=== PATIENT | female | born 1950 | race Caucasian/White ===

== ENCOUNTER 2016-11-07 08:02 | Observation (INO) | payer BC, MEDICARE ==
[~2016-11-07 08:02] MED LIST: CITA20TA4 PO; FLUO40CA PO; LISI-515 PO; LORA-392 PO; METF500T PO
[2016-11-07 10:15] VITALS: BP 131/72; PULSE 66; RESP 17; TEMP 98.8; O2SAT 95
[2016-11-07] MEDS ORDERED: MAGNESIUM HYDROXIDE SUSP 30 ML CUP PO PRN (10:45)
[2016-11-07] MEDS ORDERED: BISACODYL 10 MG SUPP RECTAL PRN (10:45)
[2016-11-07] MEDS ORDERED: SENNOSIDES 8.6 MG TAB PO PRN (10:45)
[2016-11-07] MEDS ORDERED: NALOXONE HCL 0.4 MG/ML AMP IV PRN ×2 (10:45→14:30)
[2016-11-07] MEDS ORDERED: SODIUM CHLORIDE 0.9% FLUSH 10 ML FLUSH IV FLUSH PRN (10:45)
[2016-11-07] MEDS ORDERED: LACTULOSE SYRUP 20 GM/30 ML CUP PO PRN (10:45)
[2016-11-07] MEDS ORDERED: SUCRALFATE 1 GM/10 ML CUP PO ONE (11:30)
[2016-11-07] MEDS ORDERED: ENALAPRILAT 1.25 MG/ML VIAL IV PUSH PRN (11:45)
--- NOTE | 2016-11-07 11:48 | HHI.HP ---
HPI Service [facility] Primary Care Physician Jamia Altman MD Admission Diagnosis Diagnoses: Travel History International Travel<30 Days: No Contact w/Intl Traveler <30 Da: No History of Present Illness Interview was performed with the assistance of over the phone medical language specialist. 65-year-old female with a history of diabetes mellitus, hypertension, depression, H. pylori infection presents with acute onset epigastric pressure which woke her up from sleep around 5:30 AM. This was accompanied by left arm heaviness, without weakness or numbness tingling. Does report chills and sweating around this time as well. She reports that chest pain resolved upon transfer to [facility]. She denies any nausea, vomiting, shortness of breath, diarrhea, dysuria. She reports feeling all right yesterday prior to symptoms beginning this morning, however does report "nervous stomach", described as small bowel movements shortly after eating. Review of Systems 20 lb weight loss over past 2 months. She says this is secondary to the antibiotics for H. pylori which made her nauseous. Nausea has resolved after completing antibiotics .Performed and negative except for history of present illness and past medical history Past Family Social History Past Medical History Diabetes mellitus Hypertension Depression. Chronic. Anxiety. History of H. pylori infection, however denies history of gastric ulcer. Past Surgical History Exploratory laparoscopy , bilateral tubal ligation, hysterectomy Lateral foot surgeries. Cholecystectomy Reported Medications Reported Meds & Active Scripts Active Ativan (Lorazepam) 0.5 Mg Tab 0.5 Mg PO Q8H PRN Reported Metformin (Metformin HCl) 500 Mg Tab 500 Mg PO BIDPC With meals Lisinopril 20 Mg Tab 20 Mg PO DAILY Citalopram (Citalopram Hydrobromide) 20 Mg Tab 20 Mg PO DAILY Fluoxetine (Fluoxetine HCl) 40 Mg Cap 40 Cap PO DAILY Allergies: Coded Allergies: Parafon Forte (Verified Allergy, Severe, Hives, 06/01/16) Family History Family history reviewed with the patient and found to be currently noncontributory Social History Lifelong nonsmoker, nondrinker, denies illicit drugs. Physical Exam Physical Exam GENERAL: This is a well-nourished, well-developed patient, in no apparent distress. Alert and oriented 4 SKIN: No rashes, ecchymoses or lesions. Cool and dry. HEAD: Atraumatic. Normocephalic. No temporal or scalp tenderness. EYES: Pupils equal round and reactive. Extraocular motions intact. No scleral icterus. No injection or drainage. ENT: Nose without bleeding, purulent drainage or septal hematoma. Throat without erythema, tonsillar hypertrophy or exudate. Uvula midline. Airway patent. NECK: Trachea midline. No JVD or lymphadenopathy. Supple, nontender, no meningeal signs. CARDIOVASCULAR: Regular rate and rhythm without murmurs, gallops, or rubs. RESPIRATORY: Clear to auscultation. Breath sounds equal bilaterally. No wheezes , rales, or rhonchi. GASTROINTESTINAL: Abdomen soft, non-tender, nondistended. No hepato-splenomegaly , or palpable masses. No guarding. MUSCULOSKELETAL: Extremities without clubbing, cyanosis, or edema. No joint tenderness, effusion, or edema noted. No calf tenderness. Negative Homans sign bilaterally. NEUROLOGICAL: Awake and alert. Cranial nerves II through XII intact. Motor and sensory grossly within normal limits. Five out of 5 muscle strength in all muscle groups. Normal speech. Laboratory Reviewed labs from [facility]. Imaging Reviewed chest x-ray from [facility] ED. Left base atelectasis. Assessment and Plan Assessment and Plan //Chest pain -Resolved with Nitropaste. -CXR with left base atelectasis -ekg LAD. -trend EKGs troponins -echo pending. -multiple comorbidities. -NPO. Card consultation //History of H. pylori infection with indigestion. -Patient reports she was ruled out for gastric or duodenal ulcer one month ago with endoscopy, and has completed antibiotics. -Patient's IBS symptoms could be secondary to cholecystectomy, post cholecystectomy diarrhea. Could benefit from colestipol. We'll consider -We'll order Carafate, PPI. Monitor. //CXR with left base atelectasis -IS, Acapella //Diabetes mellitus -NPO, diabetic diet. -Glucose checks. Continue to monitor. //Hypertension. Systolic blood pressure elevated in the 190s upon presentation to ER. Improved with Nitropaste. Vasotec as necessary. Continue to monitor. //Depression. Chronic. Denies any SI. Continue home medications. //Left calf discomfort. Ultrasound rule out DVT. //Anxiety. Continue home benzodiazepine. Prophylaxis. SCDs after venous Doppler returns.. Code Status Full code Discussed Condition With Patient, nurse, ED physician Julio Cesar Trujillo MD Nov 07, 2016 11:48
--- NOTE | 2016-11-07 11:57 | EKG ---
Date Performed: 11/07/2016 Time Performed: 11:23:09 PTAGE: 65 years EKG: Sinus rhythm BORDERLINE LEFT AXIS DEVIATION NONSPECIFIC T-WAVE ABNORMALITY BORDERLINE ECG PREVIOUS TRACING : 03/10/2005 21.21 No significant change from previous tracing noted. DOCTOR: Satinder Beltre Interpretating Date/Time 11/07/2016 11:56:46
[2016-11-07] MEDS: PANTOPRAZOLE SODIUM 40 MG VIAL IV PUSH SCH ×2 (12:05→21:11)
[2016-11-07] MEDS: SODIUM CHLOR 0.45% 1000 ML INJ 1,000 ML IV SCH ×2 (12:06→23:41)
[2016-11-07] MEDS ORDERED: POTASSIUM CHLOR 10 MEQ PREMIX 100 ML IV SCH (14:00)
[2016-11-07] MEDS ORDERED: ACETAMINOPHEN/HYDROcodone 325 MG/7.5 MG TAB PO PRN (14:30)
[2016-11-07] MEDS ORDERED: ACETAMINOPHEN/HYDROcodone 325 MG/5 MG TAB PO PRN (14:30)
[2016-11-07] MEDS: ACETAMINOPHEN 1000 MG/100 ML VIAL IV SCH ×2 (14:57→21:10)
--- NOTE | 2016-11-07 15:24 | MB ---
cc: MARIBEL TERESA DATE OF CONSULTATION: 11/07/2016 HISTORY OF PRESENT ILLNESS A 65-year-old female with a history of diabetes mellitus, hypertension and H. Pylori infection. She developed mid substernal chest pressure earlier this morning with left arm heaviness. The pain resolved after she was started on nitroglycerin in the hospital. She has no previous cardiac history. PAST MEDICAL HISTORY Positive for: 1. Diabetes mellitus. 2. Hypertension. 3. Depression. 4. H. Pylori infection. 5. Recent 20 pounds weight loss. 6. There is history of anxiety. PAST SURGICAL HISTORY 1. Exploratory laparoscopy. 2. . 3. Bilateral tubal ligation. 4. Hysterectomy. 5. Foot surgery. 6. Cholecystectomy. MEDICATIONS AT HOME Include: 1. Fluoxetine. 2. Citalopram. 3. Lisinopril. 4. Metformin. 5. Ativan. ALLERGIES PARAFON FORTE. SOCIAL HISTORY The patient does not smoke, she does not drink alcohol. History is obtained by the patient and with the help of an book sewing machine operator. FAMILY HISTORY Family history is positive for heart disease in both parents. REVIEW OF SYSTEMS Otherwise negative. PHYSICAL EXAMINATION VITAL SIGNS: Blood pressure 131/72, pulse 66 and regular. HEENT: Negative. NECK: 2+ carotid upstrokes. No bruits. LUNGS: Clear. HEART: Regular with no murmur, gallop or rub. ABDOMEN: Soft. No bruits. EXTREMITIES: Without edema. 2+ distal pulses. NEUROLOGIC EXAM: Grossly nonfocal. EKG EKG was reviewed and showed normal sinus rhythm, left borderline axis, nonspecific T-wave changes. LABORATORY DATA Last troponin negative. DIAGNOSIS 1. New onset angina. 2. Diabetes mellitus. 3. Hypertension. 4. Anxiety/depression. DISPOSITION Ms. Light will be monitored on telemetry with serial enzymes and EKGs. We will obtain an echocardiogram to evaluate her left ventricular function. She was offered a cardiac catheterization given her sudden onset of symptoms and multiple comorbidities, but at this time she decided against the invasive management. We will obtain nuclear myocardial perfusion study tomorrow. I will follow her for cardiology during her hospitalization. Maribel Teresa MD OQ/TLL /2:46 PM /3:11 PM MTDLisa
[2016-11-07] MEDS ORDERED: POTASSIUM CHLORIDE 10 MEQ CONTROLLED RELEASE TAB PO ONE (15:30)
[2016-11-07 15:59] VITALS: BP 160/77; PULSE 64; RESP 17; TEMP 99.4; O2SAT 96
--- NOTE | 2016-11-07 16:18 | ECHRPT ---
Indication: CHEST PAIN CONCLUSIONS Normal left ventricular size. Mild concentric left ventricular hypertrophy. The left ventricular systolic function is normal with an estimated ejection fraction in the range of 55-60%. No regional wall motion abnormalities are present. Mitral annular calcification is present. BP: 153 / 81 HR: 62 Rhythm: Sinus MEASUREMENTS (Male / Female) Normal Values Technical Quality:Good 2D ECHO LV Diastolic Diameter PLAX 4.4 cm 4.2 - 5.9 / 3.9 - 5.3 cm LV Systolic Diameter PLAX 3.3 cm IVS Diastolic Thickness 1.2 cm 0.6 - 1.0 / 0.6 - 0.9 cm LVPW Diastolic Thickness 0.8 cm 0.6 - 1.0 / 0.6 - 0.9 cm LV Relative Wall Thickness 0.5 RV Internal Dim ED PLAX 2.2 cm LA Systolic Diameter LX 2.6 cm 3.0 - 4.0 / 2.7 - 3.8 cm M-MODE Aortic Root Diameter MM 2.6 cm AV Cusp Separation MM 1.8 cm DOPPLER AV Peak Velocity 176.0 cm/s AV Peak Gradient 12.4 mmHg LVOT Peak Velocity 114.0 cm/s LVOT Peak Gradient 5.2 mmHg Mitral E Point Velocity 67.1 cm/s Mitral A Point Velocity 80.5 cm/s Mitral E to A Ratio 0.8 LV E' Lateral Velocity 4.6 cm/s Mitral E to LV E' Lateral Ratio 14.7 LV E' Septal Velocity 6.0 cm/s Mitral E to LV E' Septal Ratio 11.1 TR Peak Velocity 232.0 cm/s TR Peak Gradient 21.5 mmHg FINDINGS LEFT VENTRICLE Normal left ventricular size. Mild concentric left ventricular hypertrophy. The left ventricular systolic function is normal with an estimated ejection fraction in the range of 55-60%. No regional wall motion abnormalities are present. RIGHT VENTRICLE Normal right ventricular size and systolic function. LEFT ATRIUM The left atrial size is normal. RIGHT ATRIUM The right atrial size is normal. ATRIAL SEPTUM Normal atrial septal thickness without atrial level shunting by limited color doppler interrogation. AORTA The aortic root and proximal ascending aorta are normal in size on limited imaging. MITRAL VALVE Mitral annular calcification is present. AORTIC VALVE Trileaflet aortic valve. Aortic sclerosis. No aortic valve stenosis or regurgitation. TRICUSPID VALVE Structurally normal tricuspid valve. No tricuspid valve stenosis or regurgitation. PULMONARY VALVE The pulmonary valve is not well visualized. VESSELS The inferior vena cava is normal in size. PERICARDIUM No pericardial effusion. Maribel Chen MD, FACC (Electronically Signed) Final Date:07 November 2016 16:17
[2016-11-07] MEDS: ASPIRIN EC 81 MG TABEC PO SCH (16:28)
[2016-11-07] MEDS: PRAVASTATIN SOD 40 MG TAB PO SCH (16:28)
--- NOTE | 2016-11-07 18:07 | RADRPT ---
EXAM DATE/TIME: 11/07/2016 17:32 [facility] COMPARISON: No previous studies available for comparison. INDICATIONS : Left leg pain. MEDICAL HISTORY : Hypertension. Diabetes. Anxiety. SURGICAL HISTORY : Cholecystectomy. Hysterectomy. section. ENCOUNTER: Initial ACUITY: 2 day PAIN SCORE: 2/10 LOCATION: Left leg. TECHNIQUE: Venous ultrasound of the leg was performed from the inguinal ligament to the proximal calf. Real-hai e, color Doppler and spectral tracing, compression and augmentation techniques were used. FINDINGS: There is normal compressibility of the deep venous system from the inguinal region to the proximal ca lf. No echogenic clot is seen in the lumen of the common femoral, femoral, popliteal, and posterior tibial veins. There is a normal response of the venous system to proximal and distal augmentation an d respiration. CONCLUSION: No DVT. Ilan Art MD on November 07, 2016 at 18:04 Board Certified Radiologist. This report was verified electronically.
[2016-11-07 20:00] VITALS: BP 157/74; PULSE 61; RESP 20; TEMP 97.9; O2SAT 95
[2016-11-07] MEDS: DOCUSATE SODIUM 50 MG/SENNA 8.6 MG TAB PO SCH ×2 (21:00→21:11)
[2016-11-07] MEDS: METOPROLOL TARTRATE 25 MG TAB PO SCH (21:11)
[2016-11-07] MEDS: SODIUM CHLORIDE 0.9% FLUSH 10 ML FLUSH IV FLUSH SCH (21:12)
[2016-11-08] VITALS: BP 141/66; PULSE 63; RESP 20; TEMP 97.5; O2SAT 94
[2016-11-08] MEDS: ACETAMINOPHEN 1000 MG/100 ML VIAL IV SCH (03:12)
[2016-11-08 04:00] VITALS: BP 186/82; PULSE 67; RESP 20; TEMP 98.3; O2SAT 97
[2016-11-08 07:50] VITALS: BP 167/77; PULSE 65; RESP 17; TEMP 98.6; O2SAT 97
[2016-11-08] MEDS: SODIUM CHLORIDE 0.9% FLUSH 10 ML FLUSH IV FLUSH SCH (08:00)
[2016-11-08] MEDS ORDERED: FLUoxetine HCL 20 MG CAP PO SCH (09:00)
[2016-11-08] MEDS: CITALOPRAM HYDROBROMIDE 20 MG TAB PO SCH ×2 (09:00→14:35)
[2016-11-08] MEDS: METOPROLOL TARTRATE 25 MG TAB PO SCH ×2 (09:00→11:36)
[2016-11-08] MEDS ORDERED: LISINOPRIL 20 MG TAB PO SCH (09:00)
[2016-11-08 09:05] LABS: AUTOMATED NEUTROPHIL # 4.5 TH/MM3 (1.8-7.7); BASOPHIL % 0.5 % (0.0-2.0); EOSINOPHIL # 0.1 TH/MM3 (0-0.4); EOSINOPHIL % 1.9 % (0.0-4.0); HEMATOCRIT 40.4 % (35.0-46.0); HEMO FLAGS DIFF FINAL; LYMPH % 23.6 % (9.0-44.0); LYMPHOCYTE # 1.6 TH/MM3 (1.0-4.8); MEAN CELL VOLUME 81.4 FL (80.0-100.0); MEAN CORPUSCULAR HEMOGLOBIN 26.4 PG (27.0-34.0); MEAN CORPUSCULAR HGB CONC 32.5 % (32.0-36.0); MONO % 8.5 % (0.0-8.0); NEUT % 65.5 % (16.0-70.0); PLATELET COUNT 242 TH/MM3 (150-450); RED BLOOD COUNT 4.96 MIL/MM3 (4.00-5.30); RED CELL DISTRIBUTION WIDTH 14.2 % (11.6-17.2); WHITE BLOOD COUNT 6.9 TH/MM3 (4.0-11.0)
[2016-11-08 10:01] LABS: BICARBONATE 26.2 MEQ/L (21.0-32.0); POTASSIUM 3.9 MEQ/L (3.5-5.1)
[2016-11-08] MEDS ORDERED: REGADENOSON INJ 0.4 MG/5 ML SYR ONE (10:18)
--- NOTE | 2016-11-08 11:25 | RADRPT ---
EXAM DATE/TIME: 11/08/2016 09:17 [facility] COMPARISON: No previous studies available for comparison. INDICATIONS : Mid chest pain radiating to the left arm for one day. Angina. DOSE: 27.1 mCi Tc99m Myoview at stress. 8.7 mCi Tc99m Myoview at rest. 0.4 mg Lexiscan STRESS SYMPTOMS: Dyspnea and weird feeling. EJECTION FRACTION: > 70% MEDICAL HISTORY : Hypertension. Diabetes mellitus type 2. SURGICAL HISTORY : Hysterectomy. Cholecystectomy. Tubal ligation. ENCOUNTER: Initial ACUITY: 1 day PAIN SCALE: 5/10 LOCATION: Midsternal chest TECHNIQUE: The patient underwent pharmacologic stress with infusion of prescribed dose. Continuous ECG tracing was monitored during stress. Gated SPECT imaging was performed after stress and conventional SPECT i maging was performed at rest. The examination was performed on a SPECT/CT scanner, both attenuation and non-corrected datasets were reviewed. FINDINGS: DISTRIBUTION: The maximum perfused segment at stress is in the septal wall. PERFUSION STUDY: The pattern of perfusion at stress is within normal limits. GATED STUDY: There is intact wall motion and thickening without hypokinetic or dyskinetic segments. CONCLUSION: 1. No reversibility present to suggest ischemia. 2. Normal wall motion with ejection fraction of greater than 70%. RISK CATEGORY: Low (<1% Annual Mortality Rate) Ric Pantoja MD on November 08, 2016 at 11:21 Board Certified Radiologist. This report was verified electronically.
[2016-11-08] MEDS: PANTOPRAZOLE SODIUM 40 MG VIAL IV PUSH SCH (11:36)
[2016-11-08 11:37] VITALS: BP 142/80; PULSE 66; RESP 17; TEMP 98.3; O2SAT 97
[2016-11-08] MEDS ORDERED: PRAV40TA PO (12:05)
[2016-11-08] MEDS ORDERED: ASPI-99 PO (12:05)
[2016-11-08] MEDS ORDERED: OMEP40CA2 PO (12:05)
[2016-11-08] MEDS ORDERED: FLUO20CA12 PO (12:57)
[2016-11-08] MEDS ORDERED: HYDR12.57 PO (12:57)
[2016-11-08] MEDS ORDERED: HYDROCHLOROTHIAZIDE 12.5 MG CAP PO ONE (13:00)
[2016-11-08] MEDS: SODIUM CHLOR 0.45% 1000 ML INJ 1,000 ML IV SCH (13:14)
--- NOTE | 2016-11-08 13:54 | EKG ---
Date Performed: 11/07/2016 Time Performed: 17:08:45 PTAGE: 65 years EKG: Sinus rhythm BORDERLINE LEFT AXIS DEVIATION NONSPECIFIC T-WAVE ABNORMALITY BORDERLINE ECG Compared to prior jay ng no significant change PREVIOUS TRACING : 11/07/2016 11.23 DOCTOR: Juliet Salomon Interpretating Date/Time 11/08/2016 13:47:21
--- NOTE | 2016-11-08 14:07 | PD.CARD.PN ---
Subjective Subjective Remarks No CP or SOB, feels better Objective Medications Current Medications Medications (Trade) Dose Ordered Sig/Eloy Route Start Time Stop Time Status Last Admin (05/21 NS 1000 ml Inj) 1,000 ml @ 75 mls/hr [id number] IV 11/07/16 10:34 11/07/16 23:41 (NS Flush) 2 ml UNSCH PRN IV FLUSH 11/07/16 10:45 11/08/16 03:35 (NS Flush) 2 ml BID IV FLUSH 11/07/16 21:00 11/08/16 08:00 (Narcan Inj) 0.4 mg UNSCH PRN IV 11/07/16 10:45 (Eden-Colace) 1 tab BID PO 11/07/16 21:00 (Milk Of Magnesia Liq) 30 ml Q12H PRN PO 11/07/16 10:45 (Senokot) 17.2 mg Q12H PRN PO 11/07/16 10:45 (Dulcolax Supp) 10 mg DAILY PRN RECTAL 11/07/16 10:45 (Lactulose Liq) 30 ml DAILY PRN PO 11/07/16 10:45 (Protonix Inj) 40 mg Q12HR IV PUSH 11/07/16 11:30 11/08/16 11:36 (Vasotec Inj) 1.25 mg Q6H PRN IV PUSH 11/07/16 11:45 11/08/16 03:35 ([place] Powder 5-325 Mg) 1 tab Q4H PRN PO 11/07/16 14:30 11/07/16 14:42 ([place] Powder 7.5-325 Mg) 1 tab Q4H PRN PO 11/07/16 14:30 11/07/16 21:11 (Lopressor) 12.5 mg Q12HR PO 11/07/16 21:00 11/08/16 11:36 (Ecotrin Ec) 81 mg DAILY PO 11/07/16 14:45 11/07/16 16:28 (Pravachol) 40 mg DAILY PO 11/07/16 14:45 11/07/16 16:28 (CeleXA) 20 mg DAILY PO 11/08/16 09:00 (Prinivil) 20 mg DAILY PO 11/08/16 09:00 11/08/16 11:36 (Microzide) 12.5 mg DAILY PO 11/09/16 09:00 (PROzac) 20 mg DAILY PO 11/09/16 09:00 Vital Signs / I&O Vital Signs Date Time Temp Pulse Resp B/P Pulse Ox O2 Delivery O2 Flow Rate FiO2 11/08/16 11:37 98.3 66 17 142/80 97 11/08/16 07:50 98.6 65 17 167/77 97 11/08/16 04:00 98.3 67 20 186/82 97 11/08/16 00:00 97.5 63 20 141/66 94 11/07/16 20:00 97.9 61 20 157/74 95 11/07/16 15:59 99.4 64 17 160/77 96 I/O 11/07/16 11/07/16 11/07/16 11/08/16 11/08/16 11/08/16 07:00 15:00 23:00 07:00 15:00 23:00 Intake Total 360 ml 875 ml Balance 360 ml 875 ml Intake Oral 360 ml IV Total 875 ml # Voids 1 1 2 Physical Exam GENERAL: In NAD SKIN: Warm and dry. HEAD: Normocephalic. EYES: No scleral icterus. No injection or drainage. NECK: Supple, trachea midline. No JVD or lymphadenopathy. CARDIOVASCULAR: Regular rate and rhythm without murmurs, gallops, or rubs. RESPIRATORY: Breath sounds equal bilaterally. No accessory muscle use. GASTROINTESTINAL: Abdomen soft, non-tender, nondistended. MUSCULOSKELETAL: No cyanosis, or edema. Laboratory Laboratory Tests Test 11/07/16 11/08/16 15:54 07:11 Troponin I LESS THAN 0.02 NG/ML White Blood Count 6.9 TH/MM3 Red Blood Count 4.96 MIL/MM3 Hemoglobin 13.1 GM/DL Hematocrit 40.4 % Mean Corpuscular Volume 81.4 FL Mean Corpuscular Hemoglobin 26.4 PG Mean Corpuscular Hemoglobin 32.5 % Concent Red Cell Distribution Width 14.2 % Platelet Count 242 TH/MM3 Mean Platelet Volume 8.8 FL Neutrophils (%) (Auto) 65.5 % Lymphocytes (%) (Auto) 23.6 % Monocytes (%) (Auto) 8.5 % Eosinophils (%) (Auto) 1.9 % Basophils (%) (Auto) 0.5 % Neutrophils # (Auto) 4.5 TH/MM3 Lymphocytes # (Auto) 1.6 TH/MM3 Monocytes # (Auto) 0.6 TH/MM3 Eosinophils # (Auto) 0.1 TH/MM3 Basophils # (Auto) 0.0 TH/MM3 CBC Comment DIFF FINAL Differential Comment Sodium Level 138 MEQ/L Potassium Level 3.9 MEQ/L Chloride Level 104 MEQ/L Carbon Dioxide Level 26.2 MEQ/L Anion Gap 8 MEQ/L Blood Urea Nitrogen 9 MG/DL Creatinine 0.61 MG/DL Estimat Glomerular Filtration 98 ML/MIN Rate Random Glucose 119 MG/DL Calcium Level 8.7 MG/DL Imaging Current Medications Medications (Trade) Dose Ordered Sig/Eloy Route Start Time Stop Time Status Last Admin (05/21 NS 1000 ml Inj) 1,000 ml @ 75 mls/hr [id number] IV 11/07/16 10:34 11/07/16 23:41 (NS Flush) 2 ml UNSCH PRN IV FLUSH 11/07/16 10:45 11/08/16 03:35 (NS Flush) 2 ml BID IV FLUSH 11/07/16 21:00 11/08/16 08:00 (Narcan Inj) 0.4 mg UNSCH PRN IV 11/07/16 10:45 (Eden-Colace) 1 tab BID PO 11/07/16 21:00 (Milk Of Magnesia Liq) 30 ml Q12H PRN PO 11/07/16 10:45 (Senokot) 17.2 mg Q12H PRN PO 11/07/16 10:45 (Dulcolax Supp) 10 mg DAILY PRN RECTAL 11/07/16 10:45 (Lactulose Liq) 30 ml DAILY PRN PO 11/07/16 10:45 (Protonix Inj) 40 mg Q12HR IV PUSH 11/07/16 11:30 11/08/16 11:36 (Vasotec Inj) 1.25 mg Q6H PRN IV PUSH 11/07/16 11:45 11/08/16 03:35 ([place] Powder 5-325 Mg) 1 tab Q4H PRN PO 11/07/16 14:30 11/07/16 14:42 ([place] Pow[place] 7.5-325 Mg) 1 tab Q4H PRN PO 11/07/16 14:30 11/07/16 21:11 (Lopressor) 12.5 mg Q12HR PO 11/07/16 21:00 11/08/16 11:36 (Ecotrin Ec) 81 mg DAILY PO 11/07/16 14:45 11/07/16 16:28 (Pravachol) 40 mg DAILY PO 11/07/16 14:45 11/07/16 16:28 (CeleXA) 20 mg DAILY PO 11/08/16 09:00 (Prinivil) 20 mg DAILY PO 11/08/16 09:00 11/08/16 11:36 (Microzide) 12.5 mg DAILY PO 11/09/16 09:00 (PROzac) 20 mg DAILY PO 11/09/16 09:00 Assessment and Plan Problem List: (1) Chest pain (2) Hypertension, goal below 140/90 (3) Diabetes type 2, controlled (4) Hyperlipidemia with target LDL less than 100 Assessment and Plan No cardiac complaints. Nuc ST with no evidence of ischemia. Symptoms were likely of noncardiac origin. Pt reassured. Recommend to continue and titrate BP meds. Increase activity. Maribel Chen MD Nov 08, 2016 14:07
--- NOTE | 2016-11-08 14:19 | HHI.PR ---
Subjective Remarks Patient seen around noon after results of myocardial perfusion scan. Using assistance of over the phone medical records analyst. She denies any chest pain or shortness of breath. Denies any nausea or vomiting. Says she feels well. Feels like going home. Discussed the results of testing with her. She does say that she recently started fluoxetine a couple months ago, noted her blood pressure was higher. Objective Vital Signs Date Time Temp Pulse Resp B/P Pulse Ox O2 Delivery O2 Flow Rate FiO2 11/08/16 11:37 98.3 66 17 142/80 97 11/08/16 07:50 98.6 65 17 167/77 97 11/08/16 04:00 98.3 67 20 186/82 97 11/08/16 00:00 97.5 63 20 141/66 94 11/07/16 20:00 97.9 61 20 157/74 95 11/07/16 15:59 99.4 64 17 160/77 96 I/O 11/07/16 11/07/16 11/07/16 11/08/16 11/08/16 11/08/16 07:00 15:00 23:00 07:00 15:00 23:00 Intake Total 360 ml 875 ml Balance 360 ml 875 ml Intake Oral 360 ml IV Total 875 ml # Voids 1 1 2 3 # Bowel Movements 1 Result Diagram: 11/08/16 0711 11/08/16 0711 Imaging Last Impressions Myocardial Perfusion Scan Nuc Med 11/08/16 0800 Signed Impressions: Service Date/Time: October 09:17 - CONCLUSION: 1. No reversibility present to suggest ischemia. 2. Normal wall motion with ejection fraction of greater than 70%%. RISK CATEGORY: Low (<1%% Annual Mortality Rate) Ric Pantoja MD Lower Extremity Ultrasound 11/07/16 0000 Signed Impressions: Service Date/Time: Monday, November 07, 2016 17:32 - CONCLUSION: No DVT. Ilan Art MD Objective Remarks GENERAL: Lying in bed. No acute distress. Appears comfortable. Alert and oriented 4. SKIN: Warm and dry. HEAD: Normocephalic. EYES: No scleral icterus. No injection or drainage. NECK: Supple, trachea midline. No JVD. CARDIOVASCULAR: Regular rate and rhythm without murmurs, gallops, or rubs. RESPIRATORY: Breath sounds equal bilaterally. No accessory muscle use. GASTROINTESTINAL: Abdomen soft, non-tender, nondistended. MUSCULOSKELETAL: No cyanosis, or edema. BACK: Nontender without obvious deformity. No CVA tenderness. A/P Assessment and Plan ===11/08/16 //Hypertension. Possible side effect of antidepressants. Patient has no SI. We'll decrease fluoxetine dose. We will add Hydrocort thiazide. Stressed compliance //Chest pain. Reviewed results of myocardial perfusion scan. Likely dyspepsia given history of H. pylori. PPI ordered. Discharge home. -Ultrasound reviewed and negative for DVT. //Chest pain -Resolved with Nitropaste. -CXR with left base atelectasis -ekg LAD. -trend EKGs troponins -echo pending. -multiple comorbidities. -Reviewed myocardial perfusion scan. //History of H. pylori infection with indigestion. -Patient reports she was ruled out for gastric or duodenal ulcer one month ago with endoscopy, and has completed antibiotics. -Patient's IBS symptoms could be secondary to cholecystectomy, post cholecystectomy diarrhea. Could benefit from colestipol. We'll consider -Proved on Carafate, PPI. Monitor. //CXR with left base atelectasis -IS, Acapella //Diabetes mellitus -NPO, diabetic diet. -Glucose checks. Continue to monitor. //Hypertension. Systolic blood pressure elevated in the 190s upon presentation to ER. Improved with Nitropaste. Vasotec as necessary. Continue to monitor. -Adjust medications as above. //Depression. Chronic. Denies any SI. Continue home medications. //Left calf discomfort. Ultrasound viewed and negative. //Anxiety. Continue home benzodiazepine. Prophylaxis. SCDs after venous Doppler returns.. Discharge Planning Patient's chest pain improved with PPI. Cardiology was consulted, patient underwent myocardial perfusion scan which shows good ejection fraction, no signs of ischemia. She will discharge home and follow up with gastroenterology as outpatient. Will be discharged on PPI. Blood pressure elevated in the 190s on admission. She does note that her blood pressures been higher since starting fluoxetine. She denied any SI. Fluoxetine dosage was decreased. Hydrochlorothiazide was added. Discharge home in good condition. Regular diet. Activity ad william. Please see discharge medication list. Follow-up with primary care and gastroenterology as outpatient. Julio Cesar Trujillo MD Nov 08, 2016 14:19
[2016-11-08] MEDS: PRAVASTATIN SOD 40 MG TAB PO SCH (14:35)
[2016-11-08] MEDS: DOCUSATE SODIUM 50 MG/SENNA 8.6 MG TAB PO SCH (14:35)
[2016-11-08] MEDS: ASPIRIN EC 81 MG TABEC PO SCH (14:36)
[2016-11-08 16:41] VITALS: BP 161/83; PULSE 66; RESP 17; TEMP 99; O2SAT 96
[2016-11-09] MEDS ORDERED: FLUoxetine HCL 20 MG CAP PO SCH (09:00)
[2016-11-09] MEDS ORDERED: HYDROCHLOROTHIAZIDE 12.5 MG CAP PO SCH (09:00)
== END 2016-11-08 18:17 | disposition home or self-care (01) ==
LOC: NEDDLT 08:02 → N05A 10:02
PROVIDERS: ADMIT Internal Medicine; ATTEND Internal Medicine
DX: I20.9 Angina pectoris, unspecified (principal); J98.11 Atelectasis; E11.9 Type 2 diabetes mellitus without complications; I10 Essential (primary) hypertension; F32.9 Major depressive disorder, single episode, unspecified; F41.9 Anxiety disorder, unspecified; E78.5 Hyperlipidemia, unspecified; Z88.8 Allergy status to other drugs, medicaments and biological substances; Z79.82 Long term (current) use of aspirin
CPT/HCPCS: 71010; 78452; 80048; 80053; 81001; 82550; 82948; 83690; 83735; 83880; 84484; 85025; 85379; 85610; 85730; 93005; 93017; 93306; 93971; 94150; 94667; 94668; A9502; C9113; G0378; J0131; J2785; J3480; 99281